=== PATIENT | female | born 1955 | race Hispanic/Latino ===

== ENCOUNTER 2018-10-08 17:17 | Emergency (ER) | payer BC ==
--- NOTE | 2018-10-08 17:57 | C.PDOC ---
History Of Present Illness 53 y/o female, w/PMhx of mitral valve prolapse, presents to the ER complaining of shortness of breath which has been present for the past few days. Patient also states that she went to her oral surgeon to have 4 teeth extracted. However, the procedure could not be performed because she had high blood pressure. Patient reports that she measured her bp at home. Patient is also complaining of right wrist pain and rash under breast which has been present for the past few months. Denies having CP, fever, chills, nausea, vomiting, ab dominal pain, weakness, and numbness. Time Seen by Provider: 10/08/18 17:31 Chief Complaint (Nursing): Medical Clearance History Per: Patient History/Exam Limitations: no limitations Onset/Duration Of Symptoms: Days Current Symptoms Are (Timing): Still Present Severity: Moderate Past Medical History Reviewed: Historical Data, Nursing Documentation, Vital Signs Vital Signs: Last Vital Signs Temp 97.3 F L 10/08/18 17:21 Pulse 68 10/08/18 17:21 Resp 18 10/08/18 17:21 BP 147/83 10/08/18 17:21 Pulse Ox 94 L 10/08/18 17:21 - Medical History PMH: Arthritis, Mitral Valve Prolapse Surgical History: Denies: Pacemaker - [facility] COLONOSCOPY (04/17/12) Family History: States: No Known Family Hx - Social History Hx Alcohol Use: Yes (SOCIALLY) Hx Substance Use: No - Immunization History Hx Tetanus Toxoid Vaccination: No Hx Influenza Vaccination: Yes Hx Pneumococcal Vaccination: No Review Of Systems Except As Marked, All Systems Reviewed And Found Negative. Constitutional: Negative for: Fever, Chills Cardiovascular: Negative for: Chest Pain Respiratory: Positive for: Shortness of Breath. Negative for: Cough Gastrointestinal: Negative for: Nausea, Vomiting Musculoskeletal: Positive for: Other (right wrist pain) Neurological: Negative for: Weakness, Numbness Physical Exam - Physical Exam Appears: Non-toxic, No Acute Distress Skin: Warm, Dry, Rash (2 x2 small vesicular lesions to right nipple) Head: Atraumatic, Normacephalic Eye(s): bilateral: Normal Inspection Nose: Normal Oral Mucosa: Moist Neck: Supple Chest: Symmetrical Cardiovascular: Rhythm Regular Respiratory: Normal Breath Sounds, No Rales, No Rhonchi, No Wheezing Gastrointestinal/Abdominal: Normal Exam, Soft, No Tenderness, No Guarding, No Rebound Extremity: Normal ROM, No Tenderness (left wrist), No Swelling (left wrist) Neurological/Psych: Oriented x3, Normal Speech ED Course And Treatment ECG: Interpreted By Me ECG Rhythm: Sinus Rhythm ECG Interpretation: Normal Rate From EC O2 Sat by Pulse Oximetry: 98 (RA) Pulse Ox Interpretation: Normal Medical Decision Making Medical Decision Making: palps/elev BP NSR on EKG, normal BP ? 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 normal exam defer x-rays Disposition Doctor Will See Patient In The: Office Counseled Patient/Family Regarding: Studies Performed, Diagnosis - Disposition Referrals: Tacho English MD [Staff Provider] - Disposition: HOME/ ROUTINE Disposition Time: 18:16 Condition: GOOD Additional Instructions: continue normal routine EKG normal R nipple lesion benign appearing follow-up with OBGYN/PMD as needed Forms: General Discharge Instructions, [facility] (Monegasque) - Clinical Impression Clinical Impression: Medical assessment - Scribe Statement The provider has reviewed the documentation as recorded by the Scribe Roxie Hightower Provider Attestation: All medical record entries made by the Scribe were at my direction and personally dictated by me. I have reviewed the chart and agree that the record accurately reflects my personal performance of the history, physical exam, medical decision making, and the department course for this patient. I have also personally directed, reviewed, and agree with the discharge instructions and disposition.
[2018-10-08 18:17] VITALS: O2SAT 98
[2018-10-08 18:45] VITALS: BP 140/83; PULSE 71; RESP 16; TEMP 98.1
--- NOTE | 2018-10-09 23:50 | CARD ---
APPROVED REPORT Date of service: 10/08/2018 EKG Measurement Heart [id number] <Conclusion> Normal sinus rhythm Possible Left atrial enlargement Borderline ECG
== END 2018-10-08 18:31 | disposition home or self-care (01) ==
LOC: C.ER 17:17
DX: Z00.00 Encounter for general adult medical examination without abnormal findings (principal)